=== PATIENT | female | born 1940 | race Caucasian/White ===

== ENCOUNTER 2021-10-30 14:10 | Inpatient (IN) | payer MEDICARE, SELFPAY ==
[~2021-10-30] VITALS: Ht 172.7 cm; Wt 66.8 kg
[2021-10-30] MEDS ORDERED: normal saline 1000ML IV soln IV ONE (15:50)
[2021-10-30 16:36] LABS: ALANINE AMINOTRANSFERASE 20 U/L (12-78); ALBUMIN 3.6 G/DL (3.4-5.0); ALKALINE PHOSPHATASE 107 IU/L (46-116); ANION GAP 10 (8-16); ASPARTATE AMINO TRANSFERASE 39 U/L (10-37); BASOPHILS # (AUTO) 0.1 X10'3 (0-0.2); BILIRUBIN,TOTAL 0.7 MG/DL (0.1-1.0); BLOOD UREA NITROGEN 20 MG/DL (7-18); BUN/CREATININE RATIO 26.7 (6.6-38.0); CALCIUM 8.7 MG/DL (8.5-10.1); CHLORIDE 99 MMOL/L (99-107); CREATININE 0.75 MG/DL (0.40-0.90); EOSINOPHILS # (AUTO) 0.1 X10'3 (0-0.9); EOSINOPHILS % (AUTO) 1.2 % (0-6); GLUCOSE 105 MG/DL (70-104); HEMATOCRIT 39.4 % (35.0-45.0); HEMOGLOBIN 13.5 g/dl (12.0-16.0); LYMPHOCYTES # (AUTO) 1.9 X10'3 (1.1-4.8); LYMPHOCYTES % (AUTO) 28.1 % (21-51); MAGNESIUM 1.8 MG/DL (1.5-2.4); MEAN CORPUSCULAR HEMOGLOBIN 31.8 PG (27.0-31.0); MEAN CORPUSCULAR HGB CONC 34.1 g/dL (33.0-36.5); MEAN PLATELET VOLUME 9.7 FL (7.4-10.4); MONOCYTES # (AUTO) 0.7 X10'3 (0-0.9); MONOCYTES % (AUTO) 10.4 % (2-12); NEUTROPHILS # (AUTO) 4.1 X10'3 (1.8-7.7); NEUTROPHILS % (AUTO) 59.3 % (42-75); PLATELET COUNT 252 X10'3 (140-440); RED BLOOD COUNT 4.24 X10'6 (4.20-5.60); RED CELL DISTRIBUTION WIDTH 15.3 % (11.5-14.5); SODIUM 134 MMOL/L (135-145); TOTAL PROTEIN 7.3 G/DL (6.4-8.2); WHITE BLOOD COUNT 6.9 X10'3 (4.5-11.0); eGFR 74 ML/MIN
[2021-10-30 16:44] LABS: POTASSIUM 3.7 MMOL/L (3.5-5.1)
[2021-10-30 17:48] LABS: CLARITY,URINE CLEAR (Clear); COLOR,URINE YELLOW (Yellow); GLUCOSE, URINE NEGATIVE (Neg); KETONES,URINE NEGATIVE (Neg); LEUKOCYTE ESTERASE ,URINE SMALL (Neg); NITRITES, URINE NEGATIVE (Neg); OCCULT BLOOD,URINE TRACE-LYSED (Neg); PROTEIN,URINE TRACE mg/dl (Neg); UROBILINOGEN,URINE 0.2 E.U/dL (0.2-1.0)
--- NOTE | 2021-10-30 17:50 | NUR ---
ATTEMPTED TO AMBULATE PT TO BATHROOM UNSUCCESSFULLY PT EXTREMELY UNSTEADY. BEDSIDE COMMODE TO ROOM AND URINE SAMPLE COLLECTED. PT BACK IN BED AND CONNECTED TO CONTINUOUS BRIM FLEXER, AUTO BP CUFF AND PULSE OX. WILL MONITOR.
[2021-10-30 17:55] LABS: UA COLLECTION TYPE CLN CATCH MIDSTREAM
[2021-10-30 17:56] LABS: BACTERIA,URINE FEW /HPF (Neg); HYALINE CASTS 0-3 /LPF (NEGATIVE); MUCUS STRANDS FEW /LPF (Neg); RBC,URINE 0-2 /HPF (0-2); SQUAMOUS EPITHELIAL CELL,UR FEW /LPF (FEW)
[2021-10-30 18:03] LABS: URINE AMPHETAMINE SCREEN NEGATIVE (Neg); URINE BARBITUATE SCREEN NEGATIVE (Neg); URINE BENZODIAZEPINES SCREEN NEGATIVE (Neg); URINE CANNABINOID SCREEN NEGATIVE (Neg); URINE COCAINE SCREEN NEGATIVE (Neg); URINE METHADONE SCREEN NEGATIVE (Neg); URINE OPIATE SCREEN NEGATIVE (Neg); URINE PHENCYCLIDINE SCREEN NEGATIVE (Neg)
[2021-10-30] MEDS ORDERED: azithromycin/NS 500mg/250ml 250 ML IV ONE (20:30)
[2021-10-30] MEDS ORDERED: CefTRIAXone/D5W-Rocephin 1gm 50 ML IV ONE (20:30)
[2021-10-30] MEDS ORDERED: potassium CL 10mEq/100ml bag 100 ML IV PRN (21:25)
[2021-10-30] MEDS: normal saline 1000ml 1,000 ML IV SCH (21:25)
[2021-10-30] MEDS ORDERED: potassium Cl 20 mEq SR tablet PO PRN (21:25)
[2021-10-30] MEDS ORDERED: acetaminophen 325mg tablet PO PRN (21:25)
[2021-10-30] MEDS ORDERED: magnesium 4gm in 100ml NS 100 ML IV PRN (21:25)
[2021-10-30] MEDS ORDERED: magnesium Cl slow-release 64mg tablet PO PRN (21:25)
[2021-10-30] MEDS ORDERED: mag hydrox/Alum hydrox/simeth 30ml oral suspension PO PRN (21:25)
[2021-10-30] MEDS ORDERED: magnesium 2GM in 50ml NS 50 ML IV PRN (21:25)
[2021-10-30] MEDS ORDERED: magnesium hydroxide 30ml (MOM) UD suspension PO PRN (21:25)
[2021-10-30] MEDS ORDERED: morphine 2 MG/ML inj. syringe IV PRN (21:25)
[2021-10-31] MEDS: heparin, porcine 5000 units/ml vial SQ SCH ×3 (01:23→16:00)
[2021-10-31] MEDS: temazepam 15mg capsule PO PRN (01:23)
[2021-10-31] MEDS ORDERED: UNABLE TO OBTAIN (04:36)
--- NOTE | 2021-10-31 04:36 | NUR ---
PT WOKE UP IN A START UNSURE OF WHERE SHE WAS OR WHY SHE IS HERE. SHE STARTED RIPPING OFF HER STICKERS BUT SOON CALMED DOWN WHEN STAFF EXPLAINED WHERE SHE WAS.
[2021-10-31] MEDS: HYDROcodone/acetaminophen 5mg/325mg tablet PO PRN ×2 (04:54→20:06)
[2021-10-31 05:43] LABS: BASOPHILS # (AUTO) 0.1 X10'3 (0-0.2); BASOPHILS % (AUTO) 1.2 % (0-1); EOSINOPHILS # (AUTO) 0.3 X10'3 (0-0.9); HEMATOCRIT 43.2 % (35.0-45.0); HEMOGLOBIN 14.2 g/dl (12.0-16.0); LYMPHOCYTES % (AUTO) 40.4 % (21-51); MEAN CORPUSCULAR HEMOGLOBIN 31.3 PG (27.0-31.0); MEAN CORPUSCULAR HGB CONC 32.8 g/dL (33.0-36.5); MEAN CORPUSCULAR VOLUME 95.4 FL (78-98); MEAN PLATELET VOLUME 10.2 FL (7.4-10.4); MONOCYTES # (AUTO) 0.7 X10'3 (0-0.9); MONOCYTES % (AUTO) 9.5 % (2-12); NEUTROPHILS # (AUTO) 3.3 X10'3 (1.8-7.7); NEUTROPHILS % (AUTO) 44.9 % (42-75); PLATELET COUNT 253 X10'3 (140-440); RED BLOOD COUNT 4.53 X10'6 (4.20-5.60); RED CELL DISTRIBUTION WIDTH 15.9 % (11.5-14.5); WHITE BLOOD COUNT 7.4 X10'3 (4.5-11.0)
[2021-10-31 06:03] LABS: ALANINE AMINOTRANSFERASE 28 U/L (12-78); ALBUMIN 3.6 G/DL (3.4-5.0); ALBUMIN/GLOBULIN RATIO 0.9 (1.1-1.5); ALKALINE PHOSPHATASE 108 IU/L (46-116); ANION GAP 13 (8-16); ASPARTATE AMINO TRANSFERASE 37 U/L (10-37); BILIRUBIN,TOTAL 0.8 MG/DL (0.1-1.0); BLOOD UREA NITROGEN 18 MG/DL (7-18); CALCIUM 8.2 MG/DL (8.5-10.1); CHLORIDE 104 MMOL/L (99-107); GLUCOSE 105 MG/DL (70-104); POTASSIUM 3.3 MMOL/L (3.5-5.1); SODIUM 142 MMOL/L (135-145); TOTAL CARBON DIOXIDE 24.8 MMOL/L (24-32); TOTAL PROTEIN 7.6 G/DL (6.4-8.2); eGFR 60 ML/MIN
[2021-10-31] MEDS: CefTRIAXone 2gm/D5W 50ml BAG 50 ML IV SCH (07:40)
[2021-10-31] MEDS: potassium Cl 20 mEq SR tablet PO PRN ×3 (07:40→20:06)
[2021-10-31] MEDS: normal saline 1000ml 1,000 ML IV SCH (07:43)
[2021-10-31] MEDS: K and/or MAG REPLACEMENT MC SCH ×2 (08:00→20:00)
[2021-10-31] MEDS ORDERED: metoprolol tartrate 50mg tablet PO ONE (08:25)
--- NOTE | 2021-10-31 08:26 | NUR ---
HR 90-140 afib. Occasionally converts to sinus bradycardia in high 50s. Dr. Cummings updated, orders placed for one time dose of metoprolol. Pt unable to answer home medications.
[2021-10-31] MEDS ORDERED: metoprolol tartrate 25mg tablet PO ONE (08:30)
[2021-10-31] MEDS ORDERED: HYDR-3972 (08:36)
[2021-10-31] MEDS ORDERED: SIMV-45 PO (08:36)
[2021-10-31] MEDS ORDERED: LEVO100T9 PO (08:36)
[2021-10-31] MEDS ORDERED: WARF2.5T82 (08:36)
[2021-10-31] MEDS ORDERED: LISI40TA13 PO (08:36)
[2021-10-31] MEDS ORDERED: LATA2.5D14 EACHEYE (08:36)
--- NOTE | 2021-10-31 14:47 | NUR ---
PAGER ID: [phone] MESSAGE: Dr Emiliano Santiago in ER 16 has posivite blood cultures gram pos cocci in clusters from IV start Aerobic tube. Took 21 hrs to detect
--- NOTE | 2021-10-31 14:57 | NUR ---
report received from ДМИТРИЙ Torres. Awaiting patient arrival.
[2021-10-31 15:10] VITALS: BP 143/78
[2021-10-31 18:00] VITALS: BP 133/74
--- NOTE | 2021-10-31 18:18 | NUR ---
Problems reprioritized. Patient report given, questions answered & plan of care reviewed with ДМИТРИЙ Dimas.
--- NOTE | 2021-10-31 18:29 | NUR ---
PAGER ID: [phone] MESSAGE: [id number] Roldan Santiago: + blood culture anaerobic gram+ cocci in clusters gram + short chains thanks! [phone]
--- NOTE | 2021-10-31 18:32 | NUR ---
Patient in room MED 316. I have received report from QUIANA CHOE and had the opportunity to ask questions and assume patient care.
[2021-10-31] MEDS: atorvastatin 20mg tablet PO SCH (20:06)
[2021-10-31] MEDS: lactobacillus rhamnosus 10,000 MMU CELLS/CAPSULE PO SCH (20:08)
[2021-10-31] MEDS: lisinopril 20mg tablet PO SCH (20:08)
[2021-10-31 22:00] VITALS: BP 153/69
[2021-11-01] VITALS (7 sets, daily range): BP systolic 105–158; BP diastolic 63–89
[2021-11-01] MEDS: heparin, porcine 5000 units/ml vial SQ SCH ×2 (00:48→08:25)
[2021-11-01] MEDS: HYDROcodone/acetaminophen 5mg/325mg tablet PO PRN (03:50)
[2021-11-01] MEDS: normal saline 1000ml 1,000 ML IV SCH (03:56)
[2021-11-01 06:37] LABS: BASOPHILS # (AUTO) 0.1 X10'3 (0-0.2); BASOPHILS % (AUTO) 1.3 % (0-1); EOSINOPHILS # (AUTO) 0.1 X10'3 (0-0.9); EOSINOPHILS % (AUTO) 2.2 % (0-6); HEMATOCRIT 37.6 % (35.0-45.0); HEMOGLOBIN 12.8 g/dl (12.0-16.0); MEAN CORPUSCULAR HEMOGLOBIN 32.1 PG (27.0-31.0); MEAN CORPUSCULAR VOLUME 94.3 FL (78-98); MEAN PLATELET VOLUME 10.1 FL (7.4-10.4); MONOCYTES # (AUTO) 0.7 X10'3 (0-0.9); MONOCYTES % (AUTO) 11.8 % (2-12); NEUTROPHILS # (AUTO) 3.1 X10'3 (1.8-7.7); NEUTROPHILS % (AUTO) 51.7 % (42-75); PLATELET COUNT 228 X10'3 (140-440); RED BLOOD COUNT 3.99 X10'6 (4.20-5.60); RED CELL DISTRIBUTION WIDTH 15.9 % (11.5-14.5)
--- NOTE | 2021-11-01 06:42 | NUR ---
Problems reprioritized. Patient report given, questions answered & plan of care reviewed with PATRICE CHOE.
[2021-11-01 07:03] LABS: ALANINE AMINOTRANSFERASE 138 U/L (12-78); ALBUMIN 3.1 G/DL (3.4-5.0); ALBUMIN/GLOBULIN RATIO 0.9 (1.1-1.5); ALKALINE PHOSPHATASE 102 IU/L (46-116); ANION GAP 12 (8-16); ASPARTATE AMINO TRANSFERASE 299 U/L (10-37); BILIRUBIN,TOTAL 0.8 MG/DL (0.1-1.0); BLOOD UREA NITROGEN 17 MG/DL (7-18); BUN/CREATININE RATIO 20.7 (6.6-38.0); CALCIUM 8.5 MG/DL (8.5-10.1); CHLORIDE 103 MMOL/L (99-107); CREATININE 0.82 MG/DL (0.40-0.90); GLUCOSE 110 MG/DL (70-104); POTASSIUM 4.4 MMOL/L (3.5-5.1); SODIUM 136 MMOL/L (135-145); TOTAL CARBON DIOXIDE 21.3 MMOL/L (24-32); TOTAL PROTEIN 6.4 G/DL (6.4-8.2); eGFR 67 ML/MIN
[2021-11-01] MEDS: K and/or MAG REPLACEMENT MC SCH ×2 (08:00→19:56)
--- NOTE | 2021-11-01 08:06 | NUR ---
PAGE TO GUPTA MESSAGE: ALESHIA ACCE [id number]. PT LEO FRANCIS IS GOING IN OF OUT OF JUNTIONAL TACH HR 160S TO 170S, THEN RESUMING RATE OF 80S-100. PT ASYMPTOMATIC, NO PRNS ON BOARD.
[2021-11-01] MEDS ORDERED: metoprolol tartrate 25mg tablet PO ONE (08:10)
[2021-11-01] MEDS: CefTRIAXone 2gm/D5W 50ml BAG 50 ML IV SCH (08:24)
[2021-11-01] MEDS: lisinopril 20mg tablet PO SCH ×2 (08:25→20:00)
[2021-11-01] MEDS: lactobacillus rhamnosus 10,000 MMU CELLS/CAPSULE PO SCH ×2 (08:25→20:00)
[2021-11-01] MEDS: levoTHYROXINE 100mcg tablet PO SCH (08:27)
--- NOTE | 2021-11-01 08:45 | NUR ---
NEW ORDER FROM CANDY FOR ONE TIME DOSE OF 25MG PO METOROPLOL
--- NOTE | 2021-11-01 10:10 | NUR ---
DAUGHTER CALLED, ALPESH, UPDATED ON PLAN OF CARE, WILL VISIT THIS AFTERNOON
--- NOTE | 2021-11-01 16:22 | NUR ---
PAGER ID: [phone] MESSAGE: JELANI LEO FRANCIS [id number] NEEDS A SITTER PLEASE, TRYING TO GET OUT OF BED DUE TO UTI PROBABLY. THANK YOU, ALESHIA TAYLOR [id number]
[2021-11-01] MEDS: atorvastatin 20mg tablet PO SCH (21:13)
--- NOTE | 2021-11-01 23:50 | NUR ---
Sent message to Dr. Orozco informing of patient's elevation in HR and abnormal rhythm. Verbal order given to administer 1x Metoprolol 25 mg oral.
[2021-11-02] VITALS (8 sets, daily range): BP systolic 95–158; BP diastolic 50–71
[2021-11-02] MEDS ORDERED: metoprolol tartrate 25mg tablet PO ONE ×2 (00:15→08:00)
[2021-11-02] MEDS: HYDROcodone/acetaminophen 5mg/325mg tablet PO PRN ×2 (03:23→22:21)
--- NOTE | 2021-11-02 05:30 | NUR ---
Patient has minimal urine output overnight, bladder scanned and max 363ml visualized. Patient is not c/o any suprapubic tenderness with palpation. No other signs of retention. Will continue to monitor and relay to AM shift nurse to monitor output.
--- NOTE | 2021-11-02 06:54 | NUR ---
Patient in room MED 316. I have received report from Kaylen CHOE and had the opportunity to ask questions and assume patient care.
[2021-11-02 07:11] LABS: ALANINE AMINOTRANSFERASE 701 U/L (12-78); ALBUMIN 3.2 G/DL (3.4-5.0); ALKALINE PHOSPHATASE 130 IU/L (46-116); ANION GAP 15 (8-16); BILIRUBIN,TOTAL 1.3 MG/DL (0.1-1.0); BLOOD UREA NITROGEN 25 MG/DL (7-18); BUN/CREATININE RATIO 25.8 (6.6-38.0); CHLORIDE 102 MMOL/L (99-107); CREATININE 0.97 MG/DL (0.40-0.90); GLUCOSE 98 MG/DL (70-104); POTASSIUM 4.9 MMOL/L (3.5-5.1); SODIUM 133 MMOL/L (135-145); TOTAL CARBON DIOXIDE 16.3 MMOL/L (24-32); TOTAL PROTEIN 6.5 G/DL (6.4-8.2); eGFR 55 ML/MIN
[2021-11-02 07:12] LABS: ASPARTATE AMINO TRANSFERASE 1777 U/L (10-37)
--- NOTE | 2021-11-02 07:47 | NUR ---
PAGER ID: [phone] MESSAGE: Good Morning. Lorena Amador has an INR of 5.4. Ning [phone] Addendum: 11/02/21 at 0830 by Ning Lisa RN Dr. Cummings aware no new orders.
[2021-11-02] MEDS: CefTRIAXone 2gm/D5W 50ml BAG 50 ML IV SCH (07:53)
[2021-11-02] MEDS: lactobacillus rhamnosus 10,000 MMU CELLS/CAPSULE PO SCH ×2 (07:55→20:56)
[2021-11-02] MEDS: lisinopril 20mg tablet PO SCH ×2 (07:55→20:58)
[2021-11-02] MEDS: levoTHYROXINE 100mcg tablet PO SCH (07:56)
[2021-11-02] MEDS: K and/or MAG REPLACEMENT MC SCH ×2 (08:00→20:00)
[2021-11-02 08:05] LABS: BASOPHILS # (AUTO) 0.1 X10'3 (0-0.2); BASOPHILS % (AUTO) 0.7 % (0-1); EOSINOPHILS # (AUTO) 0.1 X10'3 (0-0.9); EOSINOPHILS % (AUTO) 0.6 % (0-6); HEMATOCRIT 40.7 % (35.0-45.0); HEMOGLOBIN 13.4 g/dl (12.0-16.0); LYMPHOCYTES # (AUTO) 1.8 X10'3 (1.1-4.8); LYMPHOCYTES % (AUTO) 18.5 % (21-51); MEAN CORPUSCULAR HEMOGLOBIN 31.4 PG (27.0-31.0); MEAN CORPUSCULAR VOLUME 95.2 FL (78-98); MEAN PLATELET VOLUME 9.8 FL (7.4-10.4); MONOCYTES # (AUTO) 1.3 X10'3 (0-0.9); MONOCYTES % (AUTO) 13.2 % (2-12); NEUTROPHILS # (AUTO) 6.4 X10'3 (1.8-7.7); PLATELET COUNT 227 X10'3 (140-440); RED BLOOD COUNT 4.28 X10'6 (4.20-5.60); WHITE BLOOD COUNT 9.6 X10'3 (4.5-11.0)
[2021-11-02] MEDS: normal saline 1000ml 1,000 ML IV SCH ×2 (09:25→21:00)
--- NOTE | 2021-11-02 12:14 | NUR ---
PAGER ID: [phone] MESSAGE: [id number] Bing Amador has 500cc in her bladder and she is unable to void. Ning [phone]
--- NOTE | 2021-11-02 12:33 | NUR ---
PAGER ID: [phone] MESSAGE: [phone] A Pamela Montilla. unable to void and bladder scanned 500cc in her bladder. Can I place a FC? Ning [phone]
--- NOTE | 2021-11-02 13:21 | NUR ---
Patient unable to void, notified Dr. Cummings, order to straight cath patient received. If patient bladder scanned with result of greater than 500cc straight cath patient. Patient tolerated straight cath well with no issues.
--- NOTE | 2021-11-02 16:27 | NUR ---
PT recommends patient to use bed pardo to void, unsafe to transfer.
[2021-11-02] MEDS: metoprolol tartrate 25mg tablet PO SCH (20:57)
[2021-11-02] MEDS: atorvastatin 20mg tablet PO SCH (20:57)
[2021-11-03 02:00] VITALS: BP 147/58
--- NOTE | 2021-11-03 04:03 | NUR ---
Performed bladder scan at 11/02 2115 and volume was 150cc. At 11/03 040, volume was 284cc. Catheter not inserted.
[2021-11-03 06:13] LABS: BASOPHILS # (AUTO) 0.1 X10'3 (0-0.2); BASOPHILS % (AUTO) 0.5 % (0-1); EOSINOPHILS % (AUTO) 0.4 % (0-6); HEMATOCRIT 41.1 % (35.0-45.0); HEMOGLOBIN 13.6 g/dl (12.0-16.0); LYMPHOCYTES # (AUTO) 2.6 X10'3 (1.1-4.8); LYMPHOCYTES % (AUTO) 23.9 % (21-51); MEAN CORPUSCULAR HEMOGLOBIN 31.9 PG (27.0-31.0); MEAN CORPUSCULAR VOLUME 96.6 FL (78-98); MEAN PLATELET VOLUME 9.8 FL (7.4-10.4); MONOCYTES # (AUTO) 1.4 X10'3 (0-0.9); MONOCYTES % (AUTO) 12.7 % (2-12); NEUTROPHILS # (AUTO) 6.7 X10'3 (1.8-7.7); NEUTROPHILS % (AUTO) 62.5 % (42-75); PLATELET COUNT 176 X10'3 (140-440); RED BLOOD COUNT 4.26 X10'6 (4.20-5.60); RED CELL DISTRIBUTION WIDTH 17.1 % (11.5-14.5); WHITE BLOOD COUNT 10.7 X10'3 (4.5-11.0)
--- NOTE | 2021-11-03 06:25 | NUR ---
Patient in room MED 316. I have received report from JOSESITO CHOE and had the opportunity to ask questions and assume patient care.
[2021-11-03 06:39] LABS: ALANINE AMINOTRANSFERASE 908 U/L (12-78); ALBUMIN 3.2 G/DL (3.4-5.0); ALBUMIN/GLOBULIN RATIO 0.9 (1.1-1.5); ALKALINE PHOSPHATASE 169 IU/L (46-116); ANION GAP 15 (8-16); BILIRUBIN,TOTAL 1.5 MG/DL (0.1-1.0); BLOOD UREA NITROGEN 31 MG/DL (7-18); BUN/CREATININE RATIO 31.6 (6.6-38.0); CALCIUM 8.6 MG/DL (8.5-10.1); CHLORIDE 104 MMOL/L (99-107); CREATININE 0.98 MG/DL (0.40-0.90); GLUCOSE 110 MG/DL (70-104); SODIUM 137 MMOL/L (135-145); TOTAL CARBON DIOXIDE 18.4 MMOL/L (24-32); TOTAL PROTEIN 6.6 G/DL (6.4-8.2); eGFR 54 ML/MIN
[2021-11-03 06:52] VITALS: BP 143/68
[2021-11-03 06:57] LABS: ASPARTATE AMINO TRANSFERASE 1872 U/L (10-37)
[2021-11-03 08:00] VITALS: BP_SYST 143; BP_DIAS 68; BP_DIAS 69
[2021-11-03] MEDS: K and/or MAG REPLACEMENT MC SCH ×2 (08:00→20:00)
[2021-11-03] MEDS: lactobacillus rhamnosus 10,000 MMU CELLS/CAPSULE PO SCH ×2 (08:07→19:46)
[2021-11-03] MEDS: levoTHYROXINE 100mcg tablet PO SCH (08:07)
[2021-11-03] MEDS: metoprolol tartrate 25mg tablet PO SCH ×2 (08:07→20:00)
[2021-11-03] MEDS: lisinopril 20mg tablet PO SCH ×2 (08:07→19:45)
[2021-11-03] MEDS: CefTRIAXone 2gm/D5W 50ml BAG 50 ML IV SCH (08:07)
[2021-11-03 12:36] VITALS: BP 146/72
--- NOTE | 2021-11-03 14:52 | NUR ---
Page Sent PAGER ID: [phone] MESSAGE: 316 a Santiago, pt is agitated and restless. Could I order some Ativan to help relax her? charlee [phone]
[2021-11-03] MEDS ORDERED: LORazepam 2 mg/ml vial IV PRN (14:55)
--- NOTE | 2021-11-03 14:56 | NUR ---
Page Sent PAGER ID: [phone] MESSAGE: 316 a Pamela, pt has an INR of 4.8.
[2021-11-03 15:00] VITALS: BP 145/81
--- NOTE | 2021-11-03 15:03 | NUR ---
bladder scan and pt only has 300 ml in bladder
--- NOTE | 2021-11-03 17:31 | NUR ---
bladder scan pt has 308 ml in bladder. will report this to shiftman.
--- NOTE | 2021-11-03 19:02 | NUR ---
Problems reprioritized. Patient report given, questions answered & plan of care reviewed with Kassi davies.
--- NOTE | 2021-11-03 20:10 | NUR ---
Pt bladder scanned at 2009 and had 382 cc. Will continue to monitor.
[2021-11-03 22:00] VITALS: BP 157/69
--- NOTE | 2021-11-03 23:15 | NUR ---
Bladder scanned pt. 450 cc in bladder. Will continue to monitor.
[2021-11-04] VITALS (8 sets, daily range): BP systolic 144–188; BP diastolic 64–199
[2021-11-04] MEDS: normal saline 1000ml 1,000 ML IV SCH ×2 (01:25→14:22)
--- NOTE | 2021-11-04 02:50 | NUR ---
Pt bladder scanned at 575cc. Pt then voided 300 cc on bedside commode.
[2021-11-04] MEDS: acetaminophen 325mg tablet PO PRN ×2 (02:56→19:32)
--- NOTE | 2021-11-04 06:23 | NUR ---
Problems reprioritized. Patient report given, questions answered & plan of care reviewed with ДМИТРИЙ Fajardo.
[2021-11-04 06:41] LABS: BASOPHILS % (AUTO) 0.2 % (0-1); EOSINOPHILS % (AUTO) 0.1 % (0-6); HEMATOCRIT 41.2 % (35.0-45.0); HEMOGLOBIN 13.3 g/dl (12.0-16.0); LYMPHOCYTES # (AUTO) 1.8 X10'3 (1.1-4.8); MEAN CORPUSCULAR HEMOGLOBIN 31.3 PG (27.0-31.0); MEAN CORPUSCULAR HGB CONC 32.3 g/dL (33.0-36.5); MEAN CORPUSCULAR VOLUME 96.8 FL (78-98); MEAN PLATELET VOLUME 10.4 FL (7.4-10.4); MONOCYTES # (AUTO) 1.3 X10'3 (0-0.9); NEUTROPHILS # (AUTO) 8.4 X10'3 (1.8-7.7); NEUTROPHILS % (AUTO) 72.7 % (42-75); PLATELET COUNT 160 X10'3 (140-440); RED BLOOD COUNT 4.26 X10'6 (4.20-5.60); WHITE BLOOD COUNT 11.5 X10'3 (4.5-11.0)
--- NOTE | 2021-11-04 06:55 | NUR ---
Patient in room MED 316. I have received report from ДМИТРИЙ Solitario and had the opportunity to ask questions and assume patient care.
[2021-11-04 07:12] LABS: ALBUMIN 3.2 G/DL (3.4-5.0); ALKALINE PHOSPHATASE 208 IU/L (46-116); ANION GAP 17 (8-16); BILIRUBIN,TOTAL 2.1 MG/DL (0.1-1.0); BLOOD UREA NITROGEN 36 MG/DL (7-18); BUN/CREATININE RATIO 32.4 (6.6-38.0); CALCIUM 8.9 MG/DL (8.5-10.1); CHLORIDE 102 MMOL/L (99-107); CREATININE 1.11 MG/DL (0.40-0.90); GLUCOSE 90 MG/DL (70-104); POTASSIUM 4.6 MMOL/L (3.5-5.1); SODIUM 136 MMOL/L (135-145); TOTAL CARBON DIOXIDE 17.3 MMOL/L (24-32); TOTAL PROTEIN 6.4 G/DL (6.4-8.2); eGFR 47 ML/MIN
[2021-11-04 07:27] LABS: ALANINE AMINOTRANSFERASE 1347 U/L (12-78)
[2021-11-04 07:32] LABS: ASPARTATE AMINO TRANSFERASE 2549 U/L (10-37)
[2021-11-04] MEDS: K and/or MAG REPLACEMENT MC SCH ×2 (08:00→20:00)
[2021-11-04] MEDS: levoTHYROXINE 100mcg tablet PO SCH (08:13)
[2021-11-04] MEDS: lisinopril 20mg tablet PO SCH ×2 (08:13→19:32)
[2021-11-04] MEDS: metoprolol tartrate 25mg tablet PO SCH ×3 (08:14→21:52)
[2021-11-04] MEDS: lactobacillus rhamnosus 10,000 MMU CELLS/CAPSULE PO SCH ×2 (08:15→19:33)
[2021-11-04] MEDS: CefTRIAXone 2gm/D5W 50ml BAG 50 ML IV SCH (08:15)
--- NOTE | 2021-11-04 11:55 | NUR ---
Initial: Pt admitted s/p fall w/ recent hx of recurring falls, UTI and possible PNA per EMR. Pt noted to be confused and needs feeder. Currently on Heart Healthy diet w/ poor PO intake, mostly 25% of meals though w/ some refusals not meeting needs. Recommend liberalizing to Regular diet if MD agreeable given geriatric age. Pt may also benefit from Ensure Enlive TID to help meet needs. [facility] 10/30 w/ PRN bowel care available. Will continue to monitor. Recs: 1. Liberalize to Regular diet 2. Ensure Enlive TID; pending MD verification 3. Routine bowel care 4. Scaled wt this admit, subsequent weekly wts Addendum: 11/04/21 at [address] Amended: Links added.
[2021-11-04] MEDS: lactose-reduced food (Ensure Enlive) - 237ml bottle PO SCH ×2 (13:00→18:00)
[2021-11-04] MEDS ORDERED: hydrALAZINE 20mg/ml inj. IV PRN (14:45)
--- NOTE | 2021-11-04 18:45 | NUR ---
Problems reprioritized. Patient report given, questions answered & plan of care reviewed with ДМИТРИЙ Echeverria.
[2021-11-04] MEDS: diatr meglu/diatrizoate 30ml oral sol.-(3 dose) bottle PO SCH (19:33)
[2021-11-04] MEDS: ondansetron/PF 4mg/2ml inj IV PRN (20:43)
[2021-11-04] MEDS: nystatin 500,000 unit/5ML UD oral suspension PO SCH (21:38)
[2021-11-05] VITALS (8 sets, daily range): BP systolic 138–166; BP diastolic 65–96
[2021-11-05] MEDS: ondansetron/PF 4mg/2ml inj IV PRN (04:17)
--- NOTE | 2021-11-05 04:30 | NUR ---
scanned bladder. 504ml noted. pt refused st. cath at this time. will reassess in 1 hour. pt was able to void earlier on bsc.
--- NOTE | 2021-11-05 05:07 | NUR ---
scanned 504ml. pt upt ot bsc and able to void 275ml. pt refused st cath at this time.
[2021-11-05] MEDS: acetaminophen 325mg tablet PO PRN (05:21)
--- NOTE | 2021-11-05 06:28 | NUR ---
reported to days. noted sitter at bedside. NPO anticipates CT this am.
--- NOTE | 2021-11-05 06:39 | NUR ---
Patient in room MED 316. I have received report from Luis davies and had the opportunity to ask questions and assume patient care.
[2021-11-05] MEDS: diatr meglu/diatrizoate 30ml oral sol.-(3 dose) bottle PO SCH ×2 (07:17→10:26)
[2021-11-05] MEDS: nystatin 500,000 unit/5ML UD oral suspension PO SCH ×3 (07:18→20:10)
[2021-11-05] MEDS: CefTRIAXone 2gm/D5W 50ml BAG 50 ML IV SCH (07:19)
[2021-11-05] MEDS: lactobacillus rhamnosus 10,000 MMU CELLS/CAPSULE PO SCH ×2 (07:20→20:09)
[2021-11-05] MEDS: levoTHYROXINE 100mcg tablet PO SCH (07:20)
[2021-11-05] MEDS: lisinopril 20mg tablet PO SCH ×2 (07:25→20:10)
[2021-11-05] MEDS: lactose-reduced food (Ensure Enlive) - 237ml bottle PO SCH ×3 (08:00→18:00)
[2021-11-05] MEDS: metoprolol tartrate 25mg tablet PO SCH (08:00)
[2021-11-05] MEDS: K and/or MAG REPLACEMENT MC SCH ×2 (08:00→18:46)
--- NOTE | 2021-11-05 08:18 | NUR ---
Page Sent PAGER ID: [phone] MESSAGE: [phone] a Pamela, pt INR is 6.1
--- NOTE | 2021-11-05 08:21 | NUR ---
notified Dr. Benavides about holding Lopressor and giving lisinopril.
[2021-11-05] MEDS ORDERED: amLODIPine 5mg tablet PO ONE (12:25)
--- NOTE | 2021-11-05 12:50 | NUR ---
Page Sent PAGER ID: [phone] MESSAGE: [id number] Pamela, want to confirm this one time dose of amlodipine, you want me to give to pt? charlee [phone]
[2021-11-05] MEDS: normal saline 1000ml 1,000 ML IV SCH (15:54)
--- NOTE | 2021-11-05 18:21 | NUR ---
Problems reprioritized. Patient report given, questions answered & plan of care reviewed with Dang Byrd.
[2021-11-06] VITALS (7 sets, daily range): BP systolic 119–157; BP diastolic 63–83
[2021-11-06] MEDS: normal saline 1000ml 1,000 ML IV SCH (05:54)
--- NOTE | 2021-11-06 06:10 | NUR ---
Problems reprioritized. Patient report given, questions answered & plan of care reviewed with ДМИТРИЙ Quezada.
[2021-11-06 06:14] LABS: BASOPHILS # (AUTO) 0.1 X10'3 (0-0.2); BASOPHILS % (AUTO) 0.7 % (0-1); EOSINOPHILS # (AUTO) 0.1 X10'3 (0-0.9); EOSINOPHILS % (AUTO) 1.5 % (0-6); HEMATOCRIT 39.3 % (35.0-45.0); LYMPHOCYTES # (AUTO) 1.3 X10'3 (1.1-4.8); LYMPHOCYTES % (AUTO) 16.7 % (21-51); MEAN CORPUSCULAR HEMOGLOBIN 31.6 PG (27.0-31.0); MEAN CORPUSCULAR HGB CONC 33.2 g/dL (33.0-36.5); MEAN CORPUSCULAR VOLUME 95.2 FL (78-98); MEAN PLATELET VOLUME 9.9 FL (7.4-10.4); MONOCYTES % (AUTO) 12.8 % (2-12); NEUTROPHILS # (AUTO) 5.3 X10'3 (1.8-7.7); NEUTROPHILS % (AUTO) 68.3 % (42-75); PLATELET COUNT 146 X10'3 (140-440); RED BLOOD COUNT 4.13 X10'6 (4.20-5.60); WHITE BLOOD COUNT 7.7 X10'3 (4.5-11.0)
--- NOTE | 2021-11-06 06:26 | NUR ---
Patient in room MED 316. I have received report from Dang davies and had the opportunity to ask questions and assume patient care.
[2021-11-06 06:27] LABS: ALANINE AMINOTRANSFERASE 986 U/L (12-78); ALBUMIN 2.9 G/DL (3.4-5.0); ALBUMIN/GLOBULIN RATIO 0.9 (1.1-1.5); ALKALINE PHOSPHATASE 255 IU/L (46-116); ANION GAP 10 (8-16); BILIRUBIN,TOTAL 1.4 MG/DL (0.1-1.0); BLOOD UREA NITROGEN 21 MG/DL (7-18); BUN/CREATININE RATIO 25.9 (6.6-38.0); CALCIUM 7.9 MG/DL (8.5-10.1); CHLORIDE 104 MMOL/L (99-107); CREATININE 0.81 MG/DL (0.40-0.90); GLUCOSE 94 MG/DL (70-104); POTASSIUM 3.6 MMOL/L (3.5-5.1); SODIUM 140 MMOL/L (135-145); TOTAL CARBON DIOXIDE 26.4 MMOL/L (24-32); TOTAL PROTEIN 6.3 G/DL (6.4-8.2); eGFR 68 ML/MIN
[2021-11-06 06:30] LABS: ASPARTATE AMINO TRANSFERASE 1123 U/L (10-37)
--- NOTE | 2021-11-06 07:16 | NUR ---
Page Sent PAGER ID: [phone] MESSAGE: 316 a Pamela, pt is very tachy up to the high 160s to 170s. charlee [phone]
[2021-11-06] MEDS ORDERED: metoprolol tartrate 1mg/ml inj IV ONE (07:20)
--- NOTE | 2021-11-06 07:23 | NUR ---
PAGER ID: [phone] MESSAGE: [phone] rosa converted to afib flutter c rvr [phone] HINA ON ACCE
--- NOTE | 2021-11-06 07:30 | NUR ---
Metoprolol IV pushed. Patient HR 176, BP: 116/84, patient awake and alert dementia and confused. Dr. Benavides called in regards to be notified of Afib and Elevated HR. BP every 5 mins to monitor. Will continue to monitor.
[2021-11-06] MEDS: ondansetron/PF 4mg/2ml inj IV PRN (07:35)
--- NOTE | 2021-11-06 07:39 | NUR ---
Page Sent PAGER ID: [phone] MESSAGE: 316a Pamela, push of Lopressor at 0715 pt HR is now 145, but pt had a bout of nausea. getting a manual BP on pt now unable to get from bedside monitor.
--- NOTE | 2021-11-06 07:48 | NUR ---
PAGER ID: [phone] MESSAGE: 316 FUCHS. RAPID BEING CALLED. HINA MARIN/ CLAUDIA
--- NOTE | 2021-11-06 07:55 | NUR ---
PAGER ID: [phone] MESSAGE: RAPID NOT NEEDED AT THIS TIME. HINA MARIN/ CLAUDIA
[2021-11-06] MEDS: amLODIPine 5mg tablet PO SCH (08:00)
[2021-11-06] MEDS: lisinopril 20mg tablet PO SCH ×2 (08:00→19:55)
[2021-11-06] MEDS: K and/or MAG REPLACEMENT MC SCH ×2 (08:00→18:33)
--- NOTE | 2021-11-06 08:00 | NUR ---
pt was having tachycardic with afib/flutter 0700. Dr galicia ordered 10 mg iv push of lopressor, PCU nurse acrlee pushed medication at 0719. pt remained tachy and then started to experience some nausea, carlee gave some anti nausea medication. pt sat was decreased raised head and put her on 2 L NC and her stats where stable. Pt still remained tachy, dr galicia came to the floor and then pt had dropped down to 55-65s HR and converted to afib and stabilized. No rapid needed, physician and tele charge nurse were both notified. RT was on the floor and assessed pt as well. pt is now stable.
--- NOTE | 2021-11-06 08:48 | NUR ---
holding pts bp medications due to the unstable HR and BP earlier this AM will notify the doctor.
[2021-11-06] MEDS: levoTHYROXINE 100mcg tablet PO SCH (10:12)
[2021-11-06] MEDS: lactobacillus rhamnosus 10,000 MMU CELLS/CAPSULE PO SCH ×2 (10:12→19:55)
[2021-11-06] MEDS: nystatin 500,000 unit/5ML UD oral suspension PO SCH ×3 (10:12→19:56)
--- NOTE | 2021-11-06 10:52 | NUR ---
Page Sent PAGER ID: [phone] MESSAGE: [phone] JELANI FRANCIS EKG IS DONE
--- NOTE | 2021-11-06 18:13 | NUR ---
Problems reprioritized. Patient report given, questions answered & plan of care reviewed with KIERAN CHOE.
[2021-11-06] MEDS: metoprolol tartrate 12.5mg (1/2 tablet) PO SCH (19:55)
[2021-11-07 02:00] VITALS: BP 152/65
[2021-11-07 07:57] LABS: BASOPHILS % (AUTO) 0.7 % (0-1); EOSINOPHILS # (AUTO) 0.1 X10'3 (0-0.9); EOSINOPHILS % (AUTO) 1.2 % (0-6); HEMATOCRIT 37.8 % (35.0-45.0); HEMOGLOBIN 12.4 g/dl (12.0-16.0); LYMPHOCYTES # (AUTO) 1.4 X10'3 (1.1-4.8); LYMPHOCYTES % (AUTO) 21.6 % (21-51); MEAN CORPUSCULAR HEMOGLOBIN 31.1 PG (27.0-31.0); MEAN CORPUSCULAR HGB CONC 32.9 g/dL (33.0-36.5); MEAN CORPUSCULAR VOLUME 94.7 FL (78-98); MEAN PLATELET VOLUME 9.7 FL (7.4-10.4); MONOCYTES # (AUTO) 0.8 X10'3 (0-0.9); MONOCYTES % (AUTO) 12.4 % (2-12); NEUTROPHILS # (AUTO) 4.2 X10'3 (1.8-7.7); NEUTROPHILS % (AUTO) 64.1 % (42-75); PLATELET COUNT 147 X10'3 (140-440); RED BLOOD COUNT 3.99 X10'6 (4.20-5.60); RED CELL DISTRIBUTION WIDTH 16.8 % (11.5-14.5); WHITE BLOOD COUNT 6.5 X10'3 (4.5-11.0)
[2021-11-07 08:00] VITALS: BP_SYST 155; BP_SYST 164; BP_SYST 98; BP_DIAS 74; BP_DIAS 83
[2021-11-07] MEDS: amLODIPine 5mg tablet PO SCH (08:00)
[2021-11-07] MEDS: K and/or MAG REPLACEMENT MC SCH ×2 (08:00→20:00)
[2021-11-07] MEDS: lactobacillus rhamnosus 10,000 MMU CELLS/CAPSULE PO SCH ×2 (08:00→20:07)
[2021-11-07] MEDS: levoTHYROXINE 100mcg tablet PO SCH (08:00)
[2021-11-07] MEDS: lisinopril 20mg tablet PO SCH ×2 (08:00→20:08)
[2021-11-07] MEDS: metoprolol tartrate 12.5mg (1/2 tablet) PO SCH ×2 (08:00→20:07)
[2021-11-07] MEDS: nystatin 500,000 unit/5ML UD oral suspension PO SCH ×3 (08:00→20:08)
[2021-11-07 08:08] LABS: ALANINE AMINOTRANSFERASE 733 U/L (12-78); ALBUMIN 2.8 G/DL (3.4-5.0); ALBUMIN/GLOBULIN RATIO 0.9 (1.1-1.5); ALKALINE PHOSPHATASE 258 IU/L (46-116); ANION GAP 10 (8-16); ASPARTATE AMINO TRANSFERASE 641 U/L (10-37); BLOOD UREA NITROGEN 17 MG/DL (7-18); BUN/CREATININE RATIO 27.4 (6.6-38.0); CALCIUM 7.6 MG/DL (8.5-10.1); CHLORIDE 104 MMOL/L (99-107); CREATININE 0.62 MG/DL (0.40-0.90); GLUCOSE 83 MG/DL (70-104); POTASSIUM 3.3 MMOL/L (3.5-5.1); SODIUM 140 MMOL/L (135-145); TOTAL CARBON DIOXIDE 25.9 MMOL/L (24-32); TOTAL PROTEIN 5.8 G/DL (6.4-8.2); eGFR > 90 ML/MIN
[2021-11-07] MEDS: normal saline 1000ml 1,000 ML IV SCH (09:25)
[2021-11-07 18:00] VITALS: BP 128/100
[2021-11-07 20:00] VITALS: BP_SYST 141; BP_SYST 150; BP_SYST 94; BP_DIAS 66; BP_DIAS 76; BP_DIAS 79
[2021-11-07 22:00] VITALS: BP 145/83
[2021-11-08] MEDS: normal saline 1000ml 1,000 ML IV SCH (01:44)
[2021-11-08 02:00] VITALS: BP 119/79
[2021-11-08] MEDS ORDERED: diltiazem 5mg/ml 5ml inj. IV ONE (03:25)
--- NOTE | 2021-11-08 05:54 | NUR ---
notified that patient was sustaining increased HR in 140s to 150s again. Dr. Dumas ordered Yannick ricks. Charge nurse notified.
[2021-11-08] MEDS ORDERED: diltiazem-NS 100mg/100ml 100 ML IV SCH (05:55)
[2021-11-08] MEDS: lisinopril 20mg tablet PO SCH ×2 (07:37→20:31)
[2021-11-08] MEDS: lactobacillus rhamnosus 10,000 MMU CELLS/CAPSULE PO SCH ×2 (07:37→20:30)
[2021-11-08] MEDS: levoTHYROXINE 100mcg tablet PO SCH (07:37)
[2021-11-08] MEDS: metoprolol tartrate 12.5mg (1/2 tablet) PO SCH ×2 (07:38→20:31)
[2021-11-08 07:51] LABS: EOSINOPHILS # (AUTO) 0.1 X10'3 (0-0.9); WHITE BLOOD COUNT 7.8 X10'3 (4.5-11.0)
[2021-11-08 07:54] LABS: BASOPHILS % (AUTO) 0.4 % (0-1); EOSINOPHILS % (AUTO) 1.2 % (0-6); HEMATOCRIT 43.4 % (35.0-45.0); LYMPHOCYTES # (AUTO) 1.7 X10'3 (1.1-4.8); LYMPHOCYTES % (AUTO) 21.7 % (21-51); MEAN CORPUSCULAR HEMOGLOBIN 31.2 PG (27.0-31.0); MEAN CORPUSCULAR HGB CONC 32.3 g/dL (33.0-36.5); MEAN CORPUSCULAR VOLUME 96.6 FL (78-98); MEAN PLATELET VOLUME 9.7 FL (7.4-10.4); MONOCYTES # (AUTO) 0.8 X10'3 (0-0.9); MONOCYTES % (AUTO) 10.2 % (2-12); NEUTROPHILS # (AUTO) 5.2 X10'3 (1.8-7.7); NEUTROPHILS % (AUTO) 66.5 % (42-75); PLATELET COUNT 169 X10'3 (140-440); RED BLOOD COUNT 4.49 X10'6 (4.20-5.60); RED CELL DISTRIBUTION WIDTH 17.5 % (11.5-14.5)
[2021-11-08] MEDS: amLODIPine 5mg tablet PO SCH (08:00)
[2021-11-08] MEDS: K and/or MAG REPLACEMENT MC SCH ×2 (08:00→19:45)
[2021-11-08] MEDS ORDERED: amiodarone 150mg/dext, iso-os 100 ML IV ONE (08:05)
[2021-11-08 08:31] LABS: ALANINE AMINOTRANSFERASE 651 U/L (12-78); ALBUMIN 2.7 G/DL (3.4-5.0); ALBUMIN/GLOBULIN RATIO 0.8 (1.1-1.5); ALKALINE PHOSPHATASE 260 IU/L (46-116); ANION GAP 15 (8-16); ASPARTATE AMINO TRANSFERASE 420 U/L (10-37); BILIRUBIN,TOTAL 1.8 MG/DL (0.1-1.0); BLOOD UREA NITROGEN 13 MG/DL (7-18); BUN/CREATININE RATIO 21.3 (6.6-38.0); CALCIUM 7.6 MG/DL (8.5-10.1); CHLORIDE 103 MMOL/L (99-107); CREATININE 0.61 MG/DL (0.40-0.90); GLUCOSE 114 MG/DL (70-104); POTASSIUM 3.7 MMOL/L (3.5-5.1); SODIUM 138 MMOL/L (135-145); TOTAL PROTEIN 6.3 G/DL (6.4-8.2); eGFR > 90 ML/MIN
[2021-11-08] MEDS: nystatin 500,000 unit/5ML UD oral suspension PO SCH ×4 (08:38→20:32)
[2021-11-08] MEDS: amiodarone/D5 360MG/200ML BAG 200 ML IV SCH ×3 (08:40→23:38)
[2021-11-08] MEDS ORDERED: PERFLUTREN PROTEIN-A MICROSPHR (Optison) 0.22 MG/ML 3ML VIAL IV ONE (12:10)
[2021-11-08] MEDS ORDERED: ondansetron 4mg rapidly disintigrating tab PO PRN (13:55)
--- NOTE | 2021-11-08 13:56 | NUR ---
Reassessment: Per MD note, pt cognition improved some though is still confused at times. Currently on Heart Healthy diet w/ poor PO intake, mostly 34% x10 meals not meeting needs. Recommend liberalizing to Regular diet if MD agreeable given geriatric age. ONS unverified in EMR though pt can still benefit from them [facility] 10/30 w/ PRN bowel care available. Will continue to monitor. Recs: 1. Liberalize to Regular diet 2. Ensure Enlive TID; pending MD verification 3. Routine bowel care 4. Scaled wt this admit, subsequent weekly wts Addendum: 11/08/21 at [address] Amended: Links added.
[2021-11-08 14:35] VITALS: BP 97/71
[2021-11-08 18:00] VITALS: BP 143/70
[2021-11-08] MEDS: temazepam 15mg capsule PO PRN (20:39)
[2021-11-09] MEDS: normal saline 1000ml 1,000 ML IV SCH ×2 (01:25→21:58)
--- NOTE | 2021-11-09 01:40 | NUR ---
CALLED DR. MATTHEWS REGARDING PT ON AMIODARONE GTT. STOPPED GTT.
--- NOTE | 2021-11-09 05:26 | NUR ---
PT BLADDER SCAN = 425. PT WAS CATHETERIZED FOR 400 ML
--- NOTE | 2021-11-09 06:00 | NUR ---
Problems reprioritized. Patient report given, questions answered & plan of care reviewed with Carson. Addendum: 11/09/21 at 0705 by Pranav Higginbotham RN Amended: Links added.
[2021-11-09 06:16] LABS: BASOPHILS % (AUTO) 0.7 % (0-1); EOSINOPHILS # (AUTO) 0.2 X10'3 (0-0.9); EOSINOPHILS % (AUTO) 2.4 % (0-6); HEMATOCRIT 41.6 % (35.0-45.0); HEMOGLOBIN 13.9 g/dl (12.0-16.0); LYMPHOCYTES # (AUTO) 1.9 X10'3 (1.1-4.8); LYMPHOCYTES % (AUTO) 29.1 % (21-51); MEAN CORPUSCULAR HEMOGLOBIN 31.5 PG (27.0-31.0); MEAN CORPUSCULAR HGB CONC 33.4 g/dL (33.0-36.5); MEAN CORPUSCULAR VOLUME 94.6 FL (78-98); MEAN PLATELET VOLUME 9.3 FL (7.4-10.4); MONOCYTES # (AUTO) 0.9 X10'3 (0-0.9); MONOCYTES % (AUTO) 13.3 % (2-12); NEUTROPHILS # (AUTO) 3.5 X10'3 (1.8-7.7); NEUTROPHILS % (AUTO) 54.5 % (42-75); PLATELET COUNT 177 X10'3 (140-440); RED CELL DISTRIBUTION WIDTH 16.8 % (11.5-14.5); WHITE BLOOD COUNT 6.4 X10'3 (4.5-11.0)
[2021-11-09 06:42] LABS: ALANINE AMINOTRANSFERASE 515 U/L (12-78); ALBUMIN 2.8 G/DL (3.4-5.0); ALBUMIN/GLOBULIN RATIO 0.8 (1.1-1.5); ALKALINE PHOSPHATASE 249 IU/L (46-116); ANION GAP 10 (8-16); ASPARTATE AMINO TRANSFERASE 272 U/L (10-37); BILIRUBIN,TOTAL 1.4 MG/DL (0.1-1.0); BLOOD UREA NITROGEN 15 MG/DL (7-18); BUN/CREATININE RATIO 19.7 (6.6-38.0); CALCIUM 7.9 MG/DL (8.5-10.1); CHLORIDE 104 MMOL/L (99-107); CREATININE 0.76 MG/DL (0.40-0.90); GLUCOSE 97 MG/DL (70-104); POTASSIUM 3.4 MMOL/L (3.5-5.1); SODIUM 138 MMOL/L (135-145); TOTAL CARBON DIOXIDE 23.8 MMOL/L (24-32); TOTAL PROTEIN 6.2 G/DL (6.4-8.2); eGFR 73 ML/MIN
[2021-11-09 08:00] LABS: HBSAG SCREEN Negative (Negative); HEP A AB, IGM Negative (Negative); HEPATITIS C ANTIBODY <0.1 s/co ratio (0.0-0.9)
[2021-11-09] MEDS: K and/or MAG REPLACEMENT MC SCH ×2 (08:59→20:00)
[2021-11-09] MEDS: levoTHYROXINE 100mcg tablet PO SCH (09:05)
[2021-11-09] MEDS: nystatin 500,000 unit/5ML UD oral suspension PO SCH ×3 (09:05→21:01)
[2021-11-09] MEDS: lisinopril 20mg tablet PO SCH ×2 (09:05→21:04)
[2021-11-09] MEDS: amLODIPine 5mg tablet PO SCH (09:06)
[2021-11-09] MEDS: lactobacillus rhamnosus 10,000 MMU CELLS/CAPSULE PO SCH ×2 (09:06→21:01)
[2021-11-09] MEDS: metoprolol tartrate 12.5mg (1/2 tablet) PO SCH ×2 (09:06→21:00)
[2021-11-09 09:09] VITALS: BP 149/86
[2021-11-09 11:14] VITALS: BP 151/70
[2021-11-09] MEDS ORDERED: potassium CL 10mEq/100ml bag 100 ML IV PRN (13:45)
[2021-11-09] MEDS ORDERED: potassium Cl 20mEq/100mL bag 100 ML IV PRN (13:45)
[2021-11-09] MEDS ORDERED: potassium Cl 20 mEq SR tablet PO PRN (13:45)
[2021-11-09] MEDS ORDERED: magnesium 4gm in 100ml NS 100 ML IV PRN (13:45)
[2021-11-09] MEDS ORDERED: magnesium 2GM in 50ml NS 50 ML IV PRN (13:45)
[2021-11-09 14:02] LABS: MAGNESIUM 1.7 MG/DL (1.5-2.4)
[2021-11-09 17:06] VITALS: BP 164/70
[2021-11-09 18:00] VITALS: BP 170/77
[2021-11-09 20:00] VITALS: BP_SYST 139; BP_SYST 147; BP_SYST 156; BP_DIAS 119; BP_DIAS 84; BP_DIAS 88
[2021-11-09] MEDS ORDERED: hydrALAZINE 20mg/ml inj. IV PRN (20:05)
[2021-11-09 22:00] VITALS: BP 129/90
[2021-11-10 04:45] VITALS: BP 140/85
[2021-11-10 06:00] VITALS: BP 110/70
--- NOTE | 2021-11-10 06:18 | NUR ---
Patient in room MED 316. I have received report from ДМИТРИЙ OWENS, and had the opportunity to ask questions and assume patient care.
[2021-11-10 06:56] LABS: BASOPHILS % (AUTO) 0.6 % (0-1); EOSINOPHILS # (AUTO) 0.1 X10'3 (0-0.9); EOSINOPHILS % (AUTO) 2.1 % (0-6); HEMATOCRIT 43.2 % (35.0-45.0); HEMOGLOBIN 14.6 g/dl (12.0-16.0); LYMPHOCYTES # (AUTO) 1.5 X10'3 (1.1-4.8); MEAN CORPUSCULAR HEMOGLOBIN 31.3 PG (27.0-31.0); MEAN CORPUSCULAR HGB CONC 33.7 g/dL (33.0-36.5); MEAN CORPUSCULAR VOLUME 92.8 FL (78-98); MEAN PLATELET VOLUME 9.1 FL (7.4-10.4); MONOCYTES # (AUTO) 0.7 X10'3 (0-0.9); MONOCYTES % (AUTO) 10.4 % (2-12); NEUTROPHILS # (AUTO) 4.1 X10'3 (1.8-7.7); NEUTROPHILS % (AUTO) 63.9 % (42-75); PLATELET COUNT 210 X10'3 (140-440); RED BLOOD COUNT 4.65 X10'6 (4.20-5.60); RED CELL DISTRIBUTION WIDTH 17.2 % (11.5-14.5); WHITE BLOOD COUNT 6.4 X10'3 (4.5-11.0)
[2021-11-10 07:40] LABS: ALANINE AMINOTRANSFERASE 478 U/L (12-78); ALBUMIN/GLOBULIN RATIO 0.8 (1.1-1.5); ALKALINE PHOSPHATASE 252 IU/L (46-116); ANION GAP 10 (8-16); ASPARTATE AMINO TRANSFERASE 197 U/L (10-37); BLOOD UREA NITROGEN 10 MG/DL (7-18); BUN/CREATININE RATIO 18.5 (6.6-38.0); CALCIUM 7.5 MG/DL (8.5-10.1); CHLORIDE 105 MMOL/L (99-107); CREATININE 0.54 MG/DL (0.40-0.90); GLUCOSE 102 MG/DL (70-104); POTASSIUM 3.5 MMOL/L (3.5-5.1); SODIUM 141 MMOL/L (135-145); TOTAL CARBON DIOXIDE 26.2 MMOL/L (24-32); TOTAL PROTEIN 6.8 G/DL (6.4-8.2); eGFR > 90 ML/MIN
[2021-11-10 08:00] VITALS: BP_SYST 124; BP_SYST 125; BP_SYST 143; BP_DIAS 67; BP_DIAS 73; BP_DIAS 77
[2021-11-10] MEDS: K and/or MAG REPLACEMENT MC SCH ×2 (08:00→20:00)
[2021-11-10] MEDS: metoprolol tartrate 12.5mg (1/2 tablet) PO SCH ×2 (09:01→21:30)
[2021-11-10] MEDS: nystatin 500,000 unit/5ML UD oral suspension PO SCH ×3 (09:02→21:00)
[2021-11-10] MEDS: levoTHYROXINE 100mcg tablet PO SCH (09:02)
[2021-11-10] MEDS: lisinopril 20mg tablet PO SCH ×2 (09:02→21:36)
[2021-11-10] MEDS: amLODIPine 5mg tablet PO SCH (09:02)
[2021-11-10] MEDS: lactobacillus rhamnosus 10,000 MMU CELLS/CAPSULE PO SCH ×2 (09:03→21:30)
[2021-11-10 11:00] VITALS: BP 124/73
[2021-11-10 15:00] VITALS: BP 139/86
--- NOTE | 2021-11-10 18:48 | NUR ---
Problems reprioritized. Patient report given, questions answered & plan of care reviewed with ДМИТРИЙ ZIMMERMAN.
[2021-11-10 22:00] VITALS: BP 133/77
[2021-11-11 02:00] VITALS: BP 126/72
[2021-11-11 06:00] VITALS: BP 151/98
--- NOTE | 2021-11-11 06:15 | NUR ---
Change of shift report given to Isabel CHOE Addendum: 11/11/21 at 0709 by Raissa Ramos RN Amended: Links added.
[2021-11-11 06:37] LABS: BASOPHILS # (AUTO) 0.1 X10'3 (0-0.2); BASOPHILS % (AUTO) 0.7 % (0-1); EOSINOPHILS # (AUTO) 0.2 X10'3 (0-0.9); EOSINOPHILS % (AUTO) 2.8 % (0-6); HEMATOCRIT 41.2 % (35.0-45.0); HEMOGLOBIN 13.7 g/dl (12.0-16.0); LYMPHOCYTES # (AUTO) 1.3 X10'3 (1.1-4.8); LYMPHOCYTES % (AUTO) 19.5 % (21-51); MEAN CORPUSCULAR HEMOGLOBIN 31.1 PG (27.0-31.0); MEAN CORPUSCULAR HGB CONC 33.2 g/dL (33.0-36.5); MEAN CORPUSCULAR VOLUME 93.9 FL (78-98); MEAN PLATELET VOLUME 9.4 FL (7.4-10.4); MONOCYTES # (AUTO) 0.6 X10'3 (0-0.9); MONOCYTES % (AUTO) 9.5 % (2-12); NEUTROPHILS # (AUTO) 4.6 X10'3 (1.8-7.7); NEUTROPHILS % (AUTO) 67.5 % (42-75); PLATELET COUNT 216 X10'3 (140-440); RED BLOOD COUNT 4.39 X10'6 (4.20-5.60); WHITE BLOOD COUNT 6.8 X10'3 (4.5-11.0)
[2021-11-11 06:42] LABS: ALANINE AMINOTRANSFERASE 347 U/L (12-78); ALBUMIN 2.7 G/DL (3.4-5.0); ALBUMIN/GLOBULIN RATIO 0.8 (1.1-1.5); ALKALINE PHOSPHATASE 220 IU/L (46-116); ANION GAP 7 (8-16); ASPARTATE AMINO TRANSFERASE 130 U/L (10-37); BILIRUBIN,TOTAL 1.7 MG/DL (0.1-1.0); BLOOD UREA NITROGEN 8 MG/DL (7-18); BUN/CREATININE RATIO 15.1 (6.6-38.0); CALCIUM 7.7 MG/DL (8.5-10.1); CHLORIDE 105 MMOL/L (99-107); CREATININE 0.53 MG/DL (0.40-0.90); GLUCOSE 95 MG/DL (70-104); MAGNESIUM 1.8 MG/DL (1.5-2.4); POTASSIUM 3.5 MMOL/L (3.5-5.1); SODIUM 139 MMOL/L (135-145); TOTAL CARBON DIOXIDE 27.4 MMOL/L (24-32); TOTAL PROTEIN 6.2 G/DL (6.4-8.2); eGFR > 90 ML/MIN
--- NOTE | 2021-11-11 07:08 | NUR ---
Patient in room MED 316. I have received report from ДМИТРИЙ ZIMMERMAN, and had the opportunity to ask questions and assume patient care.
[2021-11-11] MEDS: metoprolol tartrate 12.5mg (1/2 tablet) PO SCH (07:37)
[2021-11-11] MEDS: lactobacillus rhamnosus 10,000 MMU CELLS/CAPSULE PO SCH (07:37)
[2021-11-11] MEDS: lisinopril 20mg tablet PO SCH (07:37)
[2021-11-11] MEDS: levoTHYROXINE 100mcg tablet PO SCH (07:38)
[2021-11-11] MEDS: nystatin 500,000 unit/5ML UD oral suspension PO SCH ×2 (07:38→12:59)
[2021-11-11] MEDS: amLODIPine 5mg tablet PO SCH (07:38)
[2021-11-11] MEDS: lactose-reduced food (Ensure Enlive) - 237ml bottle PO SCH ×2 (07:39→12:53)
[2021-11-11] MEDS: K and/or MAG REPLACEMENT MC SCH (07:41)
[2021-11-11 08:00] VITALS: BP_SYST 121; BP_SYST 127; BP_SYST 131; BP_DIAS 53; BP_DIAS 67; BP_DIAS 73
--- NOTE | 2021-11-11 08:01 | NUR ---
Reassessment: Per MD note, pt cognition improved some though is still confused at times. Currently on Heart Healthy diet w/ similar PO intake, mostly 35% x9 meals and avg 75% x first 3 ONS likely meeting est nutrient needs at this time. Recommend liberalizing to Regular diet if MD agreeable given geriatric age. [facility] 11/10 w/ PRN bowel care available. Will continue to monitor. Recs: 1. Liberalize to Regular diet 2. Ensure Enlive TID 3. Routine bowel care 4. Scaled wt this admit, subsequent weekly wts Addendum: 11/11/21 at [address] Amended: Links added.
[2021-11-11] MEDS ORDERED: LOP12.5T PO (09:19)
--- NOTE | 2021-11-11 16:00 | NUR ---
DISCHARGE AND FOLLOW UP INSTRUCTIONS REVIEWED WITH PT. APPROPRIATE PAPER WORK SIGNED. OPPORTUNITY GIVEN FOR PT AND DAUGHTER TO ANSWER QUESTIONS. PIV REMOVED WITH TIP INTACT. TOLERATED WELL BY PT. TELE LEADS REMOVED. PT WHEELED TO PRIVATE VEHICLE BY HOSPITAL STAFF. PT DISCHARGED TO HOME.
== END 2021-11-11 14:45 | disposition home or self-care (01) | DRG 193 ==
LOC: ER 14:11 → ED HOLD 21:32 → MED 3N 10-31 15:54
PROVIDERS: ADMIT Internal Medicine; ATTEND Family Medicine
DX: J18.9 Pneumonia, unspecified organism (principal); G93.41 Metabolic encephalopathy; I47.1 Supraventricular tachycardia; I48.92 Unspecified atrial flutter; I50.42 Chronic combined systolic (congestive) and diastolic (congestive) heart failure; N39.0 Urinary tract infection, site not specified; R29.6 Repeated falls; Z20.822 Contact with and (suspected) exposure to COVID-19; E03.9 Hypothyroidism, unspecified; E11.9 Type 2 diabetes mellitus without complications; E78.5 Hyperlipidemia, unspecified; G47.33 Obstructive sleep apnea (adult) (pediatric); G89.29 Other chronic pain; I08.3 Combined rheumatic disorders of mitral, aortic and tricuspid valves; M10.9 Gout, unspecified; I95.9 Hypotension, unspecified; M25.511 Pain in right shoulder; W18.39XA Other fall on same level, initial encounter; M25.512 Pain in left shoulder; R44.1 Visual hallucinations; I11.0 Hypertensive heart disease with heart failure; I44.7 Left bundle-branch block, unspecified; F03.90 Unspecified dementia, unspecified severity, without behavioral disturbance, psychotic disturbance, mood disturbance, and anxiety; I48.0 Paroxysmal atrial fibrillation; R33.9 Retention of urine, unspecified; I49.5 Sick sinus syndrome; K76.0 Fatty (change of) liver, not elsewhere classified; Z79.899 Other long term (current) drug therapy; Z79.01 Long term (current) use of anticoagulants; Z95.818 Presence of other cardiac implants and grafts; Y93.89 Activity, other specified; Y92.098 Other place in other non-institutional residence as the place of occurrence of the external cause; Y99.8 Other external cause status; Z71.41 Alcohol abuse counseling and surveillance of alcoholic; Z72.89 Other problems related to lifestyle; Z90.49 Acquired absence of other specified parts of digestive tract; Z98.49 Cataract extraction status, unspecified eye; Z79.890 Hormone replacement therapy; E87.6 Hypokalemia
CPT/HCPCS: 36415; 70450; 70551; 71045; 72125; 74176; 76700; 80053; 80074; 80305; 81001; 82140; 82948; 83605; 83735; 84145; 84443; 84484; 85025; 85610; 87040; 87077; 87088; 87186; 87635; 93005; 93308; 96360; 96361; 97116; 97161; 97530; 97535; 99285; C9803; G0378; J0282; J0360; J0456; J0696; J1644; J2060; J2405; J3475; J3490; J7030; Q9963

== ENCOUNTER 2021-11-18 13:46 | Emergency (ER) | payer MEDICARE, OTHER ==
[~2021-11-18] VITALS: Ht 172.7 cm; Wt 61.0 kg
[~2021-11-18 13:46] MED LIST: HYDR-3972; LATA2.5D14 EACHEYE; LEVO100T9 PO; LISI40TA13 PO; LOP12.5T PO
[2021-11-18 14:31] LABS: BASOPHILS # (AUTO) 0.1 X10'3 (0-0.2); BASOPHILS % (AUTO) 1.1 % (0-1); EOSINOPHILS # (AUTO) 0.1 X10'3 (0-0.9); EOSINOPHILS % (AUTO) 1.6 % (0-6); HEMATOCRIT 46.5 % (35.0-45.0); HEMOGLOBIN 15.3 g/dl (12.0-16.0); LYMPHOCYTES # (AUTO) 1.5 X10'3 (1.1-4.8); LYMPHOCYTES % (AUTO) 29.4 % (21-51); MEAN CORPUSCULAR HEMOGLOBIN 30.9 PG (27.0-31.0); MEAN CORPUSCULAR HGB CONC 32.8 g/dL (33.0-36.5); MEAN CORPUSCULAR VOLUME 94.1 FL (78-98); MEAN PLATELET VOLUME 8.8 FL (7.4-10.4); MONOCYTES # (AUTO) 0.4 X10'3 (0-0.9); MONOCYTES % (AUTO) 7.3 % (2-12); NEUTROPHILS # (AUTO) 3.1 X10'3 (1.8-7.7); NEUTROPHILS % (AUTO) 60.6 % (42-75); PLATELET COUNT 304 X10'3 (140-440); RED BLOOD COUNT 4.94 X10'6 (4.20-5.60); WHITE BLOOD COUNT 5.1 X10'3 (4.5-11.0)
[2021-11-18 14:43] LABS: APTT 29 SECONDS (22-32)
[2021-11-18 22:49] VITALS: BP 151/84
[2021-11-19 01:20] LABS: CLARITY,URINE CLOUDY (Clear); COLOR,URINE YELLOW (Yellow); GLUCOSE, URINE NEGATIVE (Neg); KETONES,URINE TRACE mg/dl (Neg); LEUKOCYTE ESTERASE ,URINE TRACE (Neg); NITRITES, URINE NEGATIVE (Neg); OCCULT BLOOD,URINE NEGATIVE (Neg); PROTEIN,URINE 30 mg/dl (Neg)
[2021-11-19 01:26] LABS: UA COLLECTION TYPE NON-SPECIFIED
[2021-11-19] MEDS ORDERED: CEPH-585 PO ×2 (01:28→01:36)
[2021-11-19 01:30] LABS: BACTERIA,URINE 1+ /HPF (Neg); CAL OXALATE CRYSTALS 2+ /HPF (NEGATIVE); MUCUS STRANDS FEW /LPF (Neg); SQUAMOUS EPITHELIAL CELL,UR FEW /LPF (FEW); WBC CLUMPS,URINE FEW /HPF (NEGATIVE)
[2021-11-19] MEDS ORDERED: cephalexin 250mg capsule PO ONE (01:30)
[2021-11-21] MEDS ORDERED: furosemide 20MG tablet PO ONE (06:35)
== END 2021-11-19 02:51 | disposition home or self-care (01) ==
LOC: ER 13:47
DX: N39.0 Urinary tract infection, site not specified (principal); R06.02 Shortness of breath; R41.0 Disorientation, unspecified; R53.1 Weakness; I48.91 Unspecified atrial fibrillation; Z87.440 Personal history of urinary (tract) infections; Z87.01 Personal history of pneumonia (recurrent); Z79.2 Long term (current) use of antibiotics; Z79.899 Other long term (current) drug therapy
CPT/HCPCS: 36415; 70450; 81001; 85025; 85610; 85730; 99284